=== PATIENT | male | born 1930 | race Caucasian/White ===

== ENCOUNTER 2018-10-01 23:01 | Emergency (ER) | payer MEDICARE, OTHER ==
[~2018-10-01] VITALS: Ht 180.3 cm; Wt 77.0 kg
[~2018-10-01 23:01] MED LIST: ATEN-169 PO; CHOL378P PO; CLIN150C8 PO; DIAZ2TAB PO; EZET10TA13 PO; HYDR-3965 PO
[2018-10-01] MEDS ORDERED: METH500T PO (23:41)
[2018-10-01] MEDS ORDERED: acetaminophen 325mg tablet PO ONE (23:45)
[2018-10-01] MEDS ORDERED: diazepam 5mg tablet PO ONE (23:45)
[2018-10-02 00:53] VITALS: BP 159/79
[2018-10-03] MEDS ORDERED: CYCL-1 PO (22:04)
== END 2018-10-02 00:59 | disposition home or self-care (01) ==
LOC: ER 23:01
DX: S16.1XXA Strain of muscle, fascia and tendon at neck level, initial encounter (principal); E78.00 Pure hypercholesterolemia, unspecified; I10 Essential (primary) hypertension; G89.29 Other chronic pain; Z98.890 Other specified postprocedural states; Z79.899 Other long term (current) drug therapy; X58.XXXA Exposure to other specified factors, initial encounter; Y93.89 Activity, other specified; Y92.89 Other specified places as the place of occurrence of the external cause; Y99.8 Other external cause status
CPT/HCPCS: 99284